=== PATIENT | male | born 1980 | race Caucasian/White ===

== ENCOUNTER 2016-08-29 10:34 | Emergency (ER) | payer OTHER ==
--- NOTE | 2016-08-29 11:20 | EDPHY ---
HPI/HX/ROS/PE/MDM Narrative: CHIEF COMPLAINT: Blurry vision HPI: The patient is a 36 year old male who complains of ongoing blurry vision. The patient states he's experienced this blurry vision as well as seeing his heart beat in his eyes for over 3 weeks. He saw his PCP who referred him to an Writer. The Writer suggested further testing in regards to the optic nerve and arranged an followup field vision test. Over the past week the patient reports increased stress and decreased sleep. He states this causes the blurry vision to worsen. He has intermittent headaches, but states he has a history of migraines that usually come in clusters. Last night he experienced some chest tightness. He states he feels anxious. He complains of physical and mental weakness due to lack of sleep. REVIEW OF SYSTEMS: Aside from elements discussed in the HPI, a comprehensive 10-point review of systems was reviewed and is negative. PMH: History of seizures as a child, migraines. SOCIAL HISTORY: Never smoked. No drug use. Occasional alcohol. PHYSICAL EXAM: General: Patient is alert, in no acute distress. ENT: Eyes are normal to inspection. ENT inspection normal. Neck: Normal inspection. Full range of motion. Respiratory: No respiratory distress. Breath sounds normal bilaterally. Cardiovascular: Regular rate and rhythm. Strong peripheral pulses. Abdomen: The abdomen is nontender to palpation. There are no peritoneal signs. There are normal bowel sounds. Back: Normal to inspection. No tenderness to palpation. Skin: Normal color. No rash. Warm and dry. Extremities: Normal appearance. Full range of motion. Neuro: Oriented x3. Normal motor function. Normal sensory function. No pronator drift. Negative rapid alternating movement. ED Course: Imaging: Study: CT of the head. Indication: Blurred vision. Results: Negative. The study was read by the radiologist, Dr. Rodas. I viewed the images myself on the PACS system. MDM: This patient presents with numerous fairly non-specific symptoms including blurry vision. His primary issue appears to be anxiety and insomnia. At his request we performed a standard panel of blood tests and a CTH, which are thankfully negative. I offered him Ativan which he refused, as well as mental health evaluation, which he also refused. He does not appear to be a danger to himself and he appears to have decisional capacity. He is in process of workup by his PCP, rito and a neurologist. - Data Points Laboratory Results: Laboratory Results 08/29/16 11:50 08/29/16 11:50 08/29/16 08/29/16 08/29/16 11:50 11:50 11:50 WBC 4.70 10^3/uL 10^3/uL (3.80-9.50) RBC 5.36 10^6/uL 10^6/uL (4.40-6.38) Hgb 16.7 g/dL g/dL (13.7-17.5) Hct 47.7 % % (40.0-51.0) MCV 89.0 fL fL (81.5-99.8) MCH 31.2 pg pg (27.9-34.1) MCHC 35.0 g/dL g/dL (32.4-36.7) RDW 12.3 % % (11.5-15.2) Plt Count 228 10^3/uL 10^3/uL (150-400) MPV 9.2 fL fL (8.7-11.7) Neut % (Auto) 52.5 % % (39.3-74.2) Lymph % (Auto) 36.4 % % (15.0-45.0) [place] % (Auto) 7.9 % % (4.5-13.0) Eos % (Auto) 1.7 % % (0.6-7.6) Baso % (Auto) 1.3 % % (0.3-1.7) Nucleat RBC Rel Count 0.0 % % (0.0-0.2) Absolute Neuts (auto) 2.47 10^3/uL 10^3/uL (1.70-6.50) Absolute Lymphs (auto) 1.71 10^3/uL 10^3/uL (1.00-3.00) Absolute Monos (auto) 0.37 10^3/uL 10^3/uL (0.30-0.80) Absolute Eos (auto) 0.08 10^3/uL 10^3/uL (0.03-0.40) Absolute Basos (auto) 0.06 10^3/uL 10^3/uL (0.02-0.10) Absolute Nucleated RBC 0.00 10^3/uL 10^3/uL (0-0.01) Immature Gran % 0.2 % % (0.0-1.1) Immature Gran # 0.01 10^3/uL 10^3/uL (0.00-0.10) Sodium 141 mEq/L mEq/L (134-144) Potassium 4.2 mEq/L mEq/L (3.5-5.2) Chloride 105 mEq/L mEq/L (97-110) Carbon Dioxide 24 mEq/l mEq/l (22-31) Anion Gap 12 mEq/L mEq/L (8-16) BUN 9 mg/dL mg/dL (7-23) Creatinine 0.8 mg/dL mg/dL (0.7-1.3) Estimated GFR > 60 Glucose 88 mg/dL mg/dL (70-100) Calcium 9.4 mg/dL mg/dL (8.5-10.4) Troponin I < 0.012 ng/mL ng/mL (0-0.034) TSH Pending Medications Given: Discontinued Medications Sodium Chloride (Ns) 1,000 mls @ 0 mls/hr IV ONCE ONE PRN Reason: Wide Open Stop: 08/29/16 11:25 Last Admin: 08/29/16 13:03 Dose: Not Given Lorazepam (Ativan Injection) 1 mg IVP EDNOW ONE Stop: 08/29/16 11:25 Last Admin: 08/29/16 13:03 Dose: Not Given General Time Seen by Provider: 08/29/16 11:12 Initial Vital Signs: Initial Vital Signs Temperature (C) 36.6 C 08/29/16 10:45 Heart Rate 75 08/29/16 10:45 Respiratory Rate 22 H 08/29/16 10:45 Blood Pressure 144/81 H 08/29/16 10:45 O2 Sat (%) 99 08/29/16 10:45 O2 Delivery Mode Room Air Allergies/Adverse Reactions: No Known Allergies Allergy (Verified 08/29/16 10:44) Home Medications: Medication Instructions Recorded NK [No Known Home Meds] 12/30/13 Departure - Departure Disposition: Home, Routine, Self-Care Clinical Impression: Anxiety, Blurry vision, Insomnia Condition: Good Instructions: Insomnia (ED) Additional Instructions: Follow-up with your doctor within one week. Return to the ED for severe headache, fever, vision changes, weakness or other concerns. Referrals: LEOBARDO NG [Primary Care Provider] - As per Instructions Report Scribed for: Sergo Velasquez Report Scribed by: Mikaela Jara Date of Report: 08/29/16 Time of Report: 11:20
[2016-08-29] MEDS ORDERED: LORazepam 2 MG/ML INJ IVP ONE (11:24)
[2016-08-29] MEDS ORDERED: NS 1,000 ML IV ONE (11:24)
[2016-08-29 11:53] LABS: % IMMATURE GRANULYOCYTES 0.2 % (0.0-1.1); ABSOLUTE IMMATURE GRANULOCYTES 0.01 10^3/uL (0.00-0.10); ADD DIFF? NO; ADD MORPH? NO; ADD SCAN? NO; ATYPICAL LYMPHOCYTE FLAG 0 (0-99); FRAGMENT RBC FLAG 0 (0-99); HEMATOCRIT 47.7 % (40.0-51.0); HEMOGLOBIN 16.7 g/dL (13.7-17.5); LEFT SHIFT FLG 0 (0-99); LIPEMIA HEMOLYSIS FLAG 90 (0-99); MEAN CELL HEMOGLOBIN 31.2 pg (27.9-34.1); MEAN PLATELET VOLUME 9.2 fL (8.7-11.7); PLATELET CLUMPS FLAG 0 (0-99); PLATELET COUNT 228 10^3/uL (150-400); RED BLOOD CELL COUNT 5.36 10^6/uL (4.40-6.38); RED CELL DISTRIBUTION WIDTH 12.3 % (11.5-15.2)
[2016-08-29 12:20] LABS: ANION GAP 12 mEq/L (8-16); CALCIUM 9.4 mg/dL (8.5-10.4); CARBON DIOXIDE 24 mEq/l (22-31); CHLORIDE 105 mEq/L (97-110); CREATININE 0.8 mg/dL (0.7-1.3); GLOMERULAR FILTRATION RATE > 60; GLUCOSE 88 mg/dL (70-100); POTASSIUM 4.2 mEq/L (3.5-5.2); SODIUM 141 mEq/L (134-144)
[2016-08-29 12:31] LABS: TROPONIN I < 0.012 ng/mL (0-0.034)
[2016-08-29 13:34] VITALS: BP 116/69; PULSE 64; RESP 18; TEMP 98.4; O2SAT 97
== END 2016-08-29 13:33 | disposition home or self-care (01) ==
DX: H53.8 Other visual disturbances (principal); F41.9 Anxiety disorder, unspecified; G47.00 Insomnia, unspecified

== ENCOUNTER 2016-09-16 18:42 | Emergency (ER) | payer OTHER ==
[2016-09-16] MEDS ORDERED: NITROGLYCERIN 0.4 MG BTL SL PRN (18:46)
--- NOTE | 2016-09-16 18:48 | EDPHY ---
H & P Time Seen by Provider: 09/16/16 18:46 HPI/ROS: CHIEF COMPLAINT: pill caught in the throat HISTORY OF PRESENT ILLNESS: Patient was transported from [place] with the pill caught in his esophagus. He took a bunch of supplements including a spirulina pill and feels like it is caught in his esophagus twice daily sternal notch. Does not think he aspirated not coughing. Currently not able to swallow saliva but was able to swallow water by EMS. REVIEW OF SYSTEMS: Eye: no change in vision ENT: no sore throat Cardiac: no chest pain or syncope Pulmonary: no cough or SOB Abdomen: no vomiting, diarrhea, abdominal pain Musculoskeletal: no back pain Skin: no rash Neuro: no headache Constitutional: no fever : no urinary symptoms A comprehensive 10 point review of systems is otherwise negative aside from elements mentioned in the history of present illness. PAST MEDICAL HISTORY: Anxiety Social history: No alcohol today General Appearance: Alert and conversant, cooperative. Eyes: No scleral icterus. ENT, Mouth: Normal mucous membranes. No angioedema Respiratory: Normal respiratory effort, breath sounds equal, lungs are clear to auscultation. No stridor and speaks in full sentences Cardiovascular: Regular rate and rhythm. Gastrointestinal: Abdomen is soft and non tender. Neurological: Alert and oriented x3. Normally conversant. Face symmetric, normal movement and sensation in all extremities. Skin: Warm and dry, no rashes. Musculoskeletal: No peripheral edema and no joint swelling. Psychiatric: Mildly anxious Emergency Department course/MDM: Initial assessment bili caught in his esophagus. I think aspiration less likely. Will try sublingual nitroglycerin followed by oral fluid trial. 1915: Symptoms resolved, pill has passed, can swallow normally. Warned he needs to follow up with GI at next week if still symptomatic. Smoking Status: Never smoked Constitutional: Initial Vital Signs Temperature (C) 36.4 C 09/16/16 18:53 Heart Rate 88 09/16/16 18:53 Respiratory Rate 22 H 09/16/16 18:53 Blood Pressure 126/72 H 09/16/16 18:53 O2 Sat (%) 100 09/16/16 18:53 O2 Delivery Mode Room Air Allergies/Adverse Reactions: No Known Allergies Allergy (Verified 08/29/16 10:44) Home Medications: Medication Instructions Recorded NK [No Known Home Meds] 07/15/14 Medical Decision Making - Data Points Medications Given: Discontinued Medications Nitroglycerin (Nitrostat) 0.4 mg SL Q5M PRN PRN Reason: Chest Pain Stop: 09/16/16 18:57 Last Admin: 09/16/16 18:55 Dose: 0.4 mg Departure - Departure Disposition: Home, Routine, Self-Care Clinical Impression: Foreign body in esophagus Qualifiers: Encounter type: initial encounter Qualified Code(s): T18.108A - Unspecified foreign body in esophagus causing other injury, initial encounter Condition: Good Instructions: Esophageal Foreign Body (ED) Referrals: Patient,NotPresent [Primary Care Provider] - As per Instructions Patric Ramírez MD [Medical Doctor] - 3-4 days, if not improved (GI referral)
[2016-09-16 18:54] VITALS: TEMP 97.5
[2016-09-16] MEDS ORDERED: NITROGLYCERIN 0.4 MG BTL SL ONE (18:57)
[2016-09-16 19:26] VITALS: BP 112/71; PULSE 73; RESP 16; O2SAT 97
== END 2016-09-16 19:25 | disposition home or self-care (01) ==
LOC: EDUNIT#
DX: T18.108A Unspecified foreign body in esophagus causing other injury, initial encounter (principal); X58.XXXA Exposure to other specified factors, initial encounter